=== PATIENT | male | born 2000 | race Hispanic/Latino ===

== ENCOUNTER 2024-11-21 13:32 | Emergency (ER) | payer BC ==
--- OUTSIDE RECORDS SUMMARY | 2024-11-21 13:34 | XMS REPORT | Continuity of Care Document ---
Author Name Unknown Address [address] [facility]. [address] [place] [address] [facility] thconnect Address [address] [facility] [address] [place] [address] Care Team Providers Care Freight Inspector Name Role Phone BRYON FLORES Primary Care Physician Florin Byers MD Attending Clinician [phone] FLORIN SPAIN Attending Clinician FLORIN Noble Admitting Clinician Racquel newberry Problems Condition Name Condition Details Condition Category Status Onset Date Resolution Date Last Treatment Date Treating Clinician Comments Source Vomiting, intractabi lity of vomiting not specified, presence of nausea not specified, unspecifie d vomiting type Vomiting, intractabi lity of vomiting not specified, presence of nausea not specified, unspecifie d vomiting type Disease Active 06-21 00:00: 00 [facility] Nonintract able episodic headache, unspecifie d headache type Nonintract able episodic headache, unspecifie d headache type Disease Active 06-21 00:00: 00 [facility] Atypical chest pain Atypical chest pain Disease Active 06-21 00:00: 00 [facility] Marijuana use Marijuana use Disease Active 06-21 00:00: 00 [facility] Acne vulgaris Acne vulgaris Disease Active 12-27 00:00: 00 [facility] Hypertroph y of nasal turbinates Hypertroph y of nasal turbinates Disease Active 12-27 00:00: 00 [facility] Routine infant or child health check Routine or child health check Disease Active 06-08 00:00: 00 [facility] Allergies, Adverse Reactions, Alerts Allergy Name Allergy Type Status Severity Reaction(s) Onset Date Inactive Date Treating Clinician Comments Source NO KNOWN ALLERGIE S Drug Class Active [facility] Social History Social Habit Start Date Stop Date Quantity Comments Source [facility] of Social function 2019-04-18 00:00:00 2019-04-18 00:00:00 [facility] Alcohol intake 2019-03-29 00:00:00 2019-03-29 00:00:00 Current non-drinker of alcohol (finding) [facility] Tobacco use and exposure 2013-05-13 00:00:00 2013-05-13 00:00:00 Smokeless tobacco non-user [facility] Tobacco Comment 2013-05-13 00:00:00 2013-05-13 00:00:00 no smoke exposure [facility] Sex Assigned At 2000 00:00:00 2000 00:00:00 [facility] Smoking Status Start Date Stop Date Source Never smoked tobacco [facility] Medications Ordered Medication Name Filled Medication Name Start Date Stop Date Current Medication? Ordering Clinician Indication Dosage Frequency Signature (SIG) Comments Components Source ondansetron (ZOFRAN) 4 mg tablet 913 00:00: 00 Yes [id number] 4mg Take 1 tablet by mouth every 8 (eight) hours as needed for Nausea and Vomiting (N/V). [facility] tretinoin (RETIN-A) 0.05 % cream 03-29 00:00: 00 Yes [id number] Apply to area(s) at bedtime. [facility] Immunizations Ordered Immunization Name Filled Immunization Name Date Status Comments Source DTAP Unknown Completed [facility] HIB 4 Dose Schedule Unknown Completed [facility] HEPATITIS A Unknown Completed [facility] Hep B, Adol or Pedi Dosage Unknown Completed [facility] H1n1 Vaccine Unknown Completed [facility] MMR Unknown Completed [facility] Pneumococcal 7 Conjugate, PCV7 (Prevnar7) Unknown Completed [facility] Polio (IPV/OPV) Unknown [facility] (TB) [facility] Completed [facility] Varicella (varivax)(chicken pox) Unknown [facility] HPV Unknown Completed [facility] Meningococcal Vaccine Unknown Completed [facility] TDAP Unknown Completed [facility] Meningococcal Polysaccharide (groups A, C, Y and W-135) conjugate vaccine (MCV4P) Unknown Completed [facility] Influenza Virus Vaccine Quad IM 3+ YRS Unknown Completed [facility] Encounters Start Date/Time End Date/Time Encounter Type Admission Type Attending Clinicians Care Facility Care Department Encounter ID Source 2023-09-04 09:29:00 2023-09-04 23:59:00 [facility] [id number] [facility] 2023-09-04 00:00:00 2023-09-04 23:59:00 [facility] [id number] [facility] 2006-10-30 00:00:00 2006-10-30 14:24:49 Outpatient O [facility] [id number] [facility]
[2024-11-21] MEDS ORDERED: dexAMETHasone 10 MG/ML VIAL ONE (13:50)
[2024-11-21] MEDS ORDERED: LIDOCAINE VISCOUS 2% 10ML ORAL SOLN ONE (13:56)
[2024-11-21 14:36] LABS: SARS-CoV-2 Antigen CONTROL BLUE LINE VIS/BG OK; SARS-CoV-2 Antigen Rapid Res Negative (Negative)
--- NOTE | 2024-11-21 15:00 | EDPHYS ---
Physician Documentation [facility] Name: Mark Cordoba Age: 24 yrs Sex: Male : 2000 Arrival Date: 11/21/2024 Time: 13:32 Bed 18 Private MD: ED Physician Wade Juarez HPI: 11/21 13:53 This 24 yrs old Male presents to ER via Ambulatory with complaints of Sore ec2 Throat. 13:53 Patient arrives today for evaluation of upper respiratory symptoms. Patient reports ec2 cough and congestion, sore throat. No fevers or chills, no nausea or vomiting.. Historical: - Allergies: 13:48 No Known Allergies; ll1 - PMHx: 13:48 None; ll1 - PSHx: 13:48 None; ll1 - Immunization history:: Adult Immunizations up to date. - Infectious Disease History:: Denies. - Social history:: Smoking status: Patient denies any tobacco usage or history of. ROS: 13:53 Constitutional: as per hpi ec2 Exam: 13:53 Constitutional: GEN: NAD Head: atraumatic Eyes: EOMI Ears: External ears are normal. ec2 Mouth: Posterior pharyngeal erythema without exudates present. No peritonsillar abscess CV: regular rate LUNGS: no respiratory distress ABD: non-distended SKIN: no evidence of rashes MSK: no evidence of trauma Vital Signs: 13:49 BP 126 / 82; Pulse 86; Resp 17; Temp 97.9; Pulse Ox 96% on R/A; Weight 79.38 kg; Height ll1 5 ft. 8 in. ; Pain 6/10; 13:49 Body Mass Index 26.61 (79.38 kg, 172.72 cm) ll1 13:49 Pain Scale: Adult ll1 MDM: 13:35 Medical Screening Exam initiated ec2 13:53 Data reviewed: vital signs, nurses notes. ED course: Patient arrives today for URI ec2 symptoms. Examination is unrevealing. Will obtain chest x-ray, viral swabs. Suspect viral infection. Additionally considered strep pharyngitis.. 14:53 ED course: Chest x-ray independently reviewed and interpreted by me, shows no acute ec2 intrathoracic process.. 11/21 13:36 Order name: Influenza Screen (a \T\ B); Complete Time: 14:53 ec2 11/21 13:36 Order name: SARS RAPID; Complete Time: 14:53 ec2 11/21 13:36 Order name: Strep ec2 11/21 14:40 Order name: Throat Culture EDMS 11/21 13:53 Order name: CXR XRAY ec2 Administered Medications: 14:04 Drug: Viscous Lidocaine Mucous Membrane Liquid (4 %) 10 ml Mucous Membrane once Route: iw Mucous Membrane; 14:05 Not Given (Patient Refused): dexamethasone 10 mg IM once iw Disposition Summary: 11/21/24 15:00 Discharge Ordered Notes: Location: Home ec2 Condition: Stable ec2 Diagnosis - Acute pharyngitis, unspecified ec2 Followup: ec2 - With: Private Physician - When: - Reason: Re-evaluation by your physician Discharge Instructions: - Discharge Summary Sheet ec2 - Pharyngitis, [id number] ec2 Forms: - Work release form ec2 - Medication Reconciliation Form ec2 - Antibiotic Education ec2 - Prescription Opioid Use ec2 - Patient Portal Instructions ec2 - Leadership Thank You Letter ec2 Prescriptions: - Prednisone 20 mg Oral Tablet - take 1 tablet ORAL route once daily for 5 days; 5 tablet; Refills: 0, Product ec2 Selection Permitted Signatures: Dispatcher [employer] Devika Serrato RN RN iw Lewis, Lynsay, RN RN ll1 Wade Juarez MD MD ec2
--- NOTE | 2024-11-21 15:00 | ER ---
Nurse's Notes [facility] Name: Mark Cordoba Age: 24 yrs Sex: Male : 2000 Arrival Date: 11/21/2024 Time: 13:32 Bed 18 Private MD: Diagnosis: Acute pharyngitis, unspecified Presentation: 11/21 13:49 Chief complaint: Patient states: Sore throat for 1 week with a cough. no fever. ll1 Coronavirus screen: Client denies travel out of the [place] in the last 14 days. cough unrelated to allergies, sore throat, Client presents with at least one sign or symptom that may indicate coronavirus-19. Standard/surgical mask placed on the client. Ebola Screen: Patient denies travel to an Ebola-affected area in the 21 days before illness onset. Initial Sepsis Screen: Does the patient meet any 2 criteria? No. Patient's initial sepsis screen is negative. Does the patient have a suspected source of infection? No. Patient's initial sepsis screen is negative. Risk Assessment: Do you want to hurt yourself or someone else? Patient reports no desire to harm self or others. Onset of symptoms was November 14, 2024. 13:49 Method Of Arrival: Ambulatory ll1 13:49 Acuity: MIHAELA 4 ll1 Triage Assessment: 13:50 General: Appears in no apparent distress. Behavior is calm, cooperative, appropriate ll1 for age. Pain: Complains of pain in throat Quality of pain is described as aching. EENT: Reports pain when swallowing. Respiratory: Reports cough that is. Historical: - Allergies: 13:48 No Known Allergies; ll1 - PMHx: 13:48 None; ll1 - PSHx: 13:48 None; ll1 - Immunization history:: Adult Immunizations up to date. - Infectious Disease History:: Denies. - Social history:: Smoking status: Patient denies any tobacco usage or history of. Screenin:52 [facility] ED Fall Risk Assessment (Adult) History of falling in the last 3 months, iw including since admission No falls in past 3 months (0 pts) Confusion or Disorientation No (0 pts) Intoxicated or Sedated No (0 pts) Impaired Gait No (0 pts) Mobility Assist Device Used No (0 pt) Altered Elimination No (0 pt) Score/Fall Risk Level 0 - 2 = Low Risk Oriented to surroundings, Maintained a safe environment. Abuse screen: Denies threats or abuse. Nutritional screening: No deficits noted. Tuberculosis screening: No symptoms or risk factors identified. Assessment: 13:51 General: Appears in no apparent distress. Behavior is calm, cooperative. General: iw Appears. General: Reports feeling ill for fatigue for. Pain: Complains of pain in throat. Neuro: Level of Consciousness is awake, alert, obeys commands, Oriented to person, place, time, situation, Moves all extremities. Full function. Respiratory: Airway is patent Respiratory effort is even, unlabored, EENT: Throat is pink. Derm: Skin is intact, is healthy with good turgor. Musculoskeletal: Range of motion: intact in all extremities. Vital Signs: 13:49 BP 126 / 82; Pulse 86; Resp 17; Temp 97.9; Pulse Ox 96% on R/A; Weight 79.38 kg; Height ll1 5 ft. 8 in. ; Pain 6/10; 13:49 Body Mass Index 26.61 (79.38 kg, 172.72 cm) ll1 13:49 Pain Scale: Adult ll1 ED Course: 13:35 Patient arrived in ED. im 13:35 Wade Juarez MD is Attending Physician. ec2 13:38 Arm band placed on Patient placed in an exam room, on a stretcher. ll1 13:50 Triage completed. ll1 13:51 Patient has correct armband on for positive identification. Provided Education on: . iw 14:22 CXR XRAY In Process Unspecified. EDMS 15:13 Devika Archer, RN is Primary Nurse. iw 15:14 No provider procedures requiring assistance completed. Patient did not have IV access iw during this emergency room visit. Administered Medications: 14:04 Drug: Viscous Lidocaine Mucous Membrane Liquid (4 %) 10 ml Mucous Membrane once Route: iw Mucous Membrane; 14:05 Not Given (Patient Refused): dexamethasone 10 mg IM once iw Medication: 13:52 VIS not applicable for this client. iw Outcome: 15:00 Discharge ordered by MD. ec2 15:12 Discharged to home ambulatory, iw 15:12 Condition: good 15:12 Discharge instructions given to patient, Instructed on discharge instructions, follow up and referral plans. medication usage, Demonstrated understanding of instructions, follow-up care, medications, Prescriptions given X 1, 15:13 Patient left the ED. iw Signatures: Dispatcher [employer] Devika Serrato RN RN iw Lewis, Lynsay, RN RN ll1 Kianna Woodruff Edwin, MD MD ec2
[2024-11-21 15:18] VITALS: BP 126/82; TEMP 97.9; O2SAT 96
--- NOTE | 2024-11-21 16:01 | RAD REPORT ---
EXAMINATION: ONE VIEW CHEST XR CLINICAL INDICATION: Male, 24 years old.,COUGH TECHNIQUE: Frontal chest projection is submitted. Examination is limited by patient positioning and t echnique. COMPARISON: No prior exam. FINDINGS: The lungs are well inflated and clear. No pneumothorax or sizable effusion. The heart is normal in s ize. Mediastinal contours are unremarkable. IMPRESSION: No acute intrathoracic abnormalities.
== END 2024-11-21 15:13 | disposition home or self-care (01) ==
LOC: ER 13:32
DX: J02.9 Acute pharyngitis, unspecified (principal); Z11.52 Encounter for screening for COVID-19
CPT/HCPCS: 36415; 71045; 87070; 87081; 87804; 87811; J1100

== ENCOUNTER 2024-12-09 20:52 | Emergency (ER) | payer BC ==
--- OUTSIDE RECORDS SUMMARY | 2024-12-09 20:55 | XMS REPORT | Continuity of Care Document ---
Author Name Unknown Address [address] [facility]. [address] [place] [address] [facility] thconnect Address [address] [facility] [place] [address] Care Team Providers Care Clinical Practice Consultant Name Role Phone BRYON FLORES Primary Care Physician Florin Byers MD Attending Clinician [phone] FLORIN SPAIN Attending Clinician FLORIN Noble Admitting [...] vomiting type Disease Active 06-21 00:00: 00 [facility] Nonintract able episodic headache, unspecifie d headache type Nonintract able episodic headache, unspecifie d headache type Disease Active 06-21 00:00: 00 [facility] Atypical chest pain Atypical chest pain Disease Active 06-21 00:00: 00 [facility] Marijuana use Marijuana use Disease Active 06-21 00:00: 00 [facility] Acne vulgaris Acne vulgaris Disease Active 12-27 00:00: 00 [facility] Hypertroph y of nasal turbinates Hypertroph y of nasal turbinates Disease Active 12-27 00:00: 00 [facility] Routine infant or child health check Routine or child health check Disease Active 06-08 00:00: 00 [facility] Allergies, Adverse Reactions, Alerts Allergy Name Allergy Type Status Severity Reaction(s) Onset Date Inactive Date Treating Clinician Comments Source NO KNOWN ALLERGIE S Drug Class Active [facility] Social History Social Habit Start Date Stop Date Quantity Comments Source [facility] Social function 2019-04-18 00:00:00 2019-04-18 00:00:00 [facility] Alcohol intake 2019-03-29 00:00:00 2019-03-29 00:00:00 Current non-drinker of alcohol (finding) [facility] Tobacco use and exposure 2013-05-13 00:00:00 2013-05-13 00:00:00 Smokeless tobacco non-user [facility] Tobacco Comment 2013-05-13 00:00:00 2013-05-13 00:00:00 no smoke exposure [facility] Sex Assigned At 2000 00:00:00 2000 00:00:00 [facility] Smoking Status Start Date Stop Date Source Never smoked tobacco [facility] Medications Ordered Medication Name Filled Medication Name Start Date Stop Date Current Medication? Ordering Clinician Indication Dosage Frequency Signature (SIG) Comments Components Source ondansetron (ZOFRAN) 4 mg tablet 9-13 00:00: 00 Yes [id number] 4mg Take 1 tablet by mouth every 8 (eight) hours as needed for Nausea and Vomiting (N/V). [facility] tretinoin (RETIN-A) 0.05 % cream 03-29 00:00: 00 Yes [id number] Apply to area(s) at bedtime. [facility] Immunizations Ordered Immunization Name Filled Immunization Name Date Status Comments Source DTAP 2023-09-04 09:29:00 Completed [facility] HIB 4 Dose Schedule 2023-09-04 09:29:00 Completed [facility] HEPATITIS A 2023-09-04 09:29:00 Completed [facility] Hep B, Adol or Pedi Dosage 2023-09-04 09:29:00 Completed [facility] H1n1 Vaccine 2023-09-04 09:29:00 Completed [facility] MMR 2023-09-04 09:29:00 Completed [facility] Pneumococcal 7 Conjugate, PCV7 (Prevnar7) 2023-09-04 09:29:00 Completed [facility] Polio (IPV/OPV) 2023-09-04 09:29:00 Completed [facility] PPD (TB) 2023-09-04 09:29:00 Completed [facility] Varicella (varivax)(chicken pox) 2023-09-04 09:29:00 Completed [facility] HPV 2023-09-04 09:29:00 Completed [facility] Meningococcal Vaccine 2023-09-04 09:29:00 Completed [facility] TDAP 2023-09-04 09:29:00 Completed [facility] Meningococcal Polysaccharide (groups A, C, Y and W-135) conjugate vaccine (MCV4P) 2023-09-04 09:29:00 Completed [facility] Influenza Virus Vaccine Quad IM 3+ YRS 2023-09-04 09:29:00 Completed [facility] Encounters Start Date/Time End Date/Time Encounter Type Admission Type Attending [facility] Facility Care Department Encounter ID Source 2023-09-04 09:29:00 2023-09-04 23:59:00 Hospital Encounter Florin Spain [facility] [id number] [facility] 2023-09-04 00:00:00 2023-09-04 23:59:00 Outpatient R FLORIN SPAIN [facility] ACO [id number] [facility] 2006-10-30 00:00:00 2006-10-30 14:24:49 Outpatient O [facility] [id number] [facility]
--- NOTE | 2024-12-09 21:10 | EDPHYS ---
Physician Documentation [facility] Name: Mark Cordoba Age: 24 yrs Sex: Male : 2000 Arrival Date: 12/09/2024 Time: 20:52 Bed IW4 Private MD: ED Physician Mario Hicks HPI: 12/09 21:07 This 24 yrs old Male presents to ER via Ambulatory with complaints of Cough, sp3 Shortness Of Breath. 21:07 24-year-old male with no PMH now presents to the ED with chief complaint continued sp3 cough and "wheezing at night" for the last 2 weeks. He was seen here 2 weeks ago had a negative chest x-ray negative swabs. Patient is in no acute distress. He denies headache, fever, rhinorrhea, earache, neck pain, neck stiffness, sinus congestion, production on the cough, chest pain, shortness of breath, abdominal pain, vomiting, diarrhea, syncope, rash, known sick contacts, travel history, or any other signs or symptoms on ROS at this time.. Historical: - Allergies: 21:03 No Known Allergies; me1 - Home Meds: 21:03 None [Active]; me1 - PMHx: 21:03 None; me1 - PSHx: 21:03 None; me1 - Immunization history:: Adult Immunizations up to date. - Infectious Disease History:: Denies. - Social history:: Smoking status: Patient reports the use of cigarette tobacco products, denies chronic smoking, but will smoke occasionally. ROS: 21:08 Constitutional: Negative for fever, chills, and weight loss, Eyes: Negative for injury, sp3 pain, redness, and discharge, Neck: Negative for injury, pain, and swelling, Cardiovascular: Negative for chest pain, palpitations, and edema, Abdomen/GI: Negative for abdominal pain, nausea, vomiting, diarrhea, and constipation, Back: Negative for injury and pain, MS/Extremity: Negative for injury and deformity, Skin: Negative for injury, rash, and discoloration, Neuro: Negative for headache, weakness, numbness, tingling, and seizure, 21:08 All other systems are negative, Exam: 21:08 Constitutional: This is a well developed, well nourished patient who is awake, alert, sp3 and in no acute distress. Head/Face: Normocephalic, atraumatic. Eyes: Pupils equal round and reactive to light, extra-ocular motions intact. Lids and lashes normal. Conjunctiva and sclera are non-icteric and not injected. Cornea within normal limits. Periorbital areas with no swelling, redness, or edema. ENT: Nares patent. No nasal discharge, no septal abnormalities noted. External auditory canals are clear. Oropharynx with no redness, swelling, or masses, exudates, or evidence of obstruction, uvula midline. Mucous membranes moist. Neck: Trachea midline, no thyromegaly or masses palpated, and no cervical lymphadenopathy. Supple, full range of motion without nuchal rigidity, or vertebral point tenderness. No Meningismus. Chest/axilla: Normal chest wall appearance and motion. Nontender with no deformity. No lesions are appreciated. Cardiovascular: Regular rate and rhythm with a normal S1 and S2. No gallops, murmurs, or rubs. Normal PMI, no JVD. No pulse deficits. Respiratory: Lungs have equal breath sounds bilaterally, clear to auscultation and percussion. No rales, rhonchi or wheezes noted. No increased work of breathing, no retractions or nasal flaring. Abdomen/GI: Soft, non-tender, with normal bowel sounds. No distension or tympany. No guarding or rebound. No evidence of tenderness throughout. Back: No spinal tenderness. No costovertebral tenderness. Full range of motion. Skin: Warm, dry with normal turgor. Normal color with no rashes, no lesions, and no evidence of cellulitis. MS/ Extremity: Pulses equal, no cyanosis. Neurovascular intact. Full, normal range of motion. Neuro: Awake and alert, GCS 15, oriented to person, place, time, and situation. Cranial nerves II-XII grossly intact. Motor strength 5/5 in all extremities. Sensory grossly intact. Cerebellar exam normal. Normal gait. Psych: Awake, alert, with orientation to person, place and time. Behavior, mood, and affect are within normal limits. Vital Signs: 21:01 BP 164 / 89; Pulse 75; Resp 18; Temp 99.2; Pulse Ox 96% ; Weight 77.11 kg; Height 5 ft. me1 8 in. ; Pain 6/10; 21:01 Body Mass Index 25.85 (77.11 kg, 172.72 cm) me1 21:01 Pain Scale: Adult me1 MDM: 21:09 Data reviewed: vital signs, nurses notes, old medical records. ED course: 24-year-old sp3 male with continued mild cough and URI symptoms. Full negative workup 2 weeks ago. Patient's lungs are clear and vital signs are normal. Will reassure him and discharge him with Tessalon Perles and albuterol MDI in case he wheezes at night. Follow-up with his PCP as needed.. 21:09 Medical Screening Exam initiated sp3 Administered Medications: No medications were administered Disposition Summary: 12/09/24 21:09 Discharge Ordered Notes: Location: Home sp3 Condition: Stable sp3 Diagnosis - Upper respiratory infection sp3 Followup: sp3 - With: Private Physician - When: Upon discharge from the Emergency Department - Reason: Continuance of care Discharge Instructions: - Discharge Summary Sheet sp3 - Upper Respiratory Infection, Adult sp3 Forms: - Medication Reconciliation Form sp3 - Antibiotic Education sp3 - Prescription Opioid Use sp3 - Patient Portal Instructions sp3 - Leadership Thank You Letter sp3 - Work release form me1 Prescriptions: - albuterol sulfate 90 mcg/actuation Inhalation HFA Aerosol Inhaler - inhale 1 puff INHALATION route every 2 to 4 hours as needed for bronchospasm; sp3 administer via ventilator; 1 Each; Refills: 0, Product Selection Permitted - Tessalon Perles 100 mg Oral Capsule - take 1 capsule ORAL route every 8 hours As needed; 15 capsule; Refills: 0, sp3 Product Selection Permitted Signatures: Mario Hicks MD MD sp3 Honey Kapadia, RN RN me1
--- NOTE | 2024-12-09 21:10 | ER ---
Nurse's Notes [facility] Name: Mark Cordoba Age: 24 yrs Sex: Male : 2000 Arrival Date: 12/09/2024 Time: 20:52 Bed IW4 Private MD: Diagnosis: Upper respiratory infection Presentation: 12/09 21:01 Chief complaint: Patient states: cough for a month that hasn't improved. States at me1 times he coughs so hard that he cant catch his breath and it makes his stomach muscles cramp. Denies fever, body aches. Coronavirus screen: Vaccine status: Patient reports being unvaccinated. Ebola Screen: No symptoms or risks identified at this time. Initial Sepsis Screen: Does the patient meet any 2 criteria? No. Patient's initial sepsis screen is negative. Does the patient have a suspected source of infection? No. Patient's initial sepsis screen is negative. Risk Assessment: Do you want to hurt yourself or someone else? Patient reports no desire to harm self or others. Onset of symptoms is unknown. 21:01 Method Of Arrival: Ambulatory [facility] [place] 21:01 Acuity: MIHAELA 4 me1 Triage Assessment: 21:05 General: Appears in no apparent distress. Behavior is calm, cooperative, appropriate me1 for age, Reports cough for a month. Pain: Complains of pain in abdomen Pain does not radiate. Pain currently is 5 out of 10 on a pain scale. Quality of pain is described as crampy, Pain began a month ago Is continuous. EENT: No signs and/or symptoms were reported regarding the EENT system. Neuro: Level of Consciousness is awake, alert, obeys commands, Oriented to person, place, time, situation, Appropriate for age. Cardiovascular: Patient's skin is warm and dry. Respiratory: Reports cough that is hacking, persistent Onset: The symptoms/episode began/occurred at an unknown time. the patient has mild shortness of breath. GI: No signs and/or symptoms were reported involving the gastrointestinal system. : No signs and/or symptoms were reported regarding the genitourinary system. Derm: Skin is intact, is healthy with good turgor, Skin is pink, warm \T\ dry. Musculoskeletal: No signs and/or symptoms reported regarding the musculoskeletal system. Historical: - Allergies: 21:03 No Known Allergies; me1 - Home Meds: 21:03 None [Active]; me1 - PMHx: 21:03 None; me1 - PSHx: 21:03 None; me1 - Immunization history:: Adult Immunizations up to date. - Infectious Disease History:: Denies. - Social history:: Smoking status: Patient reports the use of cigarette tobacco products, denies chronic smoking, but will smoke occasionally. Screenin:09 [facility] ED Fall Risk Assessment (Adult) History of falling in the last 3 months, me1 including since admission No falls in past 3 months (0 pts) Confusion or Disorientation No (0 pts) Intoxicated or Sedated No (0 pts) Impaired Gait No (0 pts) Mobility Assist Device Used No (0 pt) Altered Elimination No (0 pt) Score/Fall Risk Level 0 - 2 = Low Risk Maintained a safe environment, Provided non-skid footwear, Hourly rounding (assess needs \T\ fall precautionary measures) done. Abuse screen: Denies threats or abuse. Nutritional screening: No deficits noted. Tuberculosis screening: No symptoms or risk factors identified. Assessment: 21:09 General: See triage assessment. Cardiovascular: Rhythm is regular. Respiratory: Reports me1 cough that is persistent Airway is patent Respiratory effort is even, unlabored, Respiratory pattern is regular, symmetrical, Breath sounds are clear bilaterally. Vital Signs: 21:01 BP 164 / 89; Pulse 75; Resp 18; Temp 99.2; Pulse Ox 96% ; Weight 77.11 kg; Height 5 ft. me1 8 in. ; Pain 6/10; 21:01 Body Mass Index 25.85 (77.11 kg, 172.72 cm) me1 21:01 Pain Scale: Adult ak1 ED Course: 20:54 Patient arrived in ED. [id number] 21:00 Mario Hicks MD is Attending Physician. sp3 21:03 Triage completed. me1 21:03 Arm band placed on Patient placed in waiting room. me1 21:07 Honey Kapadia, AZAM is Primary Nurse. me1 21:09 Patient has correct armband on for positive identification. Bed in low position. Call ak1 light in reach. Side rails up X 1. Provided Education on: POC. Verbalized understanding.. 21:09 No provider procedures requiring assistance completed. Patient did not have IV access [facility] [place] during this emergency room visit. Administered Medications: No medications were administered Medication: 21:09 VIS not applicable for this client. me1 Outcome: : Discharge ordered by . sp3 21:14 Discharged to home ambulatory, me1 21:14 Condition: stable 21:14 Discharge instructions given to patient, significant other, Instructed on discharge instructions, follow up and referral plans. medication usage, Demonstrated understanding of instructions, follow-up care, medications, Prescriptions given X 2, 21:15 Patient left the ED. me1 Signatures: Mario Hicks MD MD sp3 Nesha Colmenares6 Honey Kapadia, RN RN me1
[2024-12-09 21:20] VITALS: BP 164/89; TEMP 99.2; O2SAT 96
== END 2024-12-09 21:15 | disposition home or self-care (01) ==
LOC: ER 20:52
DX: J06.9 Acute upper respiratory infection, unspecified (principal); F17.210 Nicotine dependence, cigarettes, uncomplicated